=== PATIENT | female | born 1975 | race Caucasian/White ===

== ENCOUNTER 2025-04-28 11:17 | Outpatient (CLI) | payer MEDICAID, SELFPAY ==
--- NOTE | 2025-04-28 10:41 | DI.RAD_ITS ---
Exam(s) XR SACROILIAC JOINTS XR LUMBAR SPINE AP, LAT EXAM: XR LUMBAR SPINE AP, LAT CLINICAL HISTORY: low back pain. TECHNIQUE: 2D digital imaging was performed. Three views of the lumbar spine. Three views of the SI joints. COMPARISON: CR XR SACROILIAC JOINTS from 04/28/2025 FINDINGS: BONES: No fracture or destructive lesion. Vertebral body heights are maintained. Endplate osteophytes at several levels. No facet hypertrophy identified . The SI joints appear normal. DISKS: There is kglh-la-ezchionc narrowing of the L5-S1 disc space. There are small endplate osteophytes. The remaining intervertebral disc spaces are maintained. ALIGNMENT: Lumbar spinal alignment is within normal limits. SOFT TISSUE: Suture material multiple surgical clips in the left upper quadrant. IMPRESSION: Mild degenerative changes of the lumbar spine. The SI joints appear normal. DATA REPOSITORY: RADIATION DOSE DELIVERED:
--- NOTE | 2025-04-28 10:41 | DI.RAD_ITS ---
Exam(s) XR SACROILIAC JOINTS XR LUMBAR SPINE AP, LAT EXAM: XR LUMBAR SPINE AP, LAT CLINICAL HISTORY: low back pain. TECHNIQUE: 2D digital imaging was performed. Three views of the lumbar spine. Three views of the SI joints. COMPARISON: CR XR SACROILIAC JOINTS from 04/28/2025 FINDINGS: BONES: No fracture or destructive lesion. Vertebral body heights are maintained. Endplate osteophytes at several levels. No facet hypertrophy identified . The SI joints appear normal. DISKS: There is xatq-md-ogbkhzib narrowing of the L5-S1 disc space. There are small endplate osteophytes. The remaining intervertebral disc spaces are maintained. ALIGNMENT: Lumbar spinal alignment is within normal limits. SOFT TISSUE: Suture material multiple surgical clips in the left upper quadrant. IMPRESSION: Mild degenerative changes of the lumbar spine. The SI joints appear normal. DATA REPOSITORY: RADIATION DOSE DELIVERED:
== END 2025-04-28 11:18 | disposition home or self-care (01) ==
LOC: DIORS 11:17
PROVIDERS: PCP Nurse Practitioner Family; Visit Provider Physician Assistant
DX: M54.50 Low back pain, unspecified (principal)
CPT/HCPCS: 72100; 72202

== ENCOUNTER 2025-05-14 01:52 | Outpatient (CLI) | payer MEDICAID, SELFPAY ==
--- NOTE | 2025-05-14 08:30 | DI.MRI_ITS ---
Exam(s) MR LUMBAR SPINE WO EXAM: MR LUMBAR SPINE WO CLINICAL HISTORY: PAIN, LUMBAR SPONDYLOSIS WO MYELOPATHY,RADICULOPATHY [facility], [phone]. TECHNIQUE: Multiplanar multisequence MRI of the Lumbar spine was performed. COMPARISON: CR XR SACROILIAC JOINTS from 04/28/2025 CR XR LUMBAR SPINE AP, LAT from 04/28/2025 FINDINGS: Bones: The last intervertebral disc space is designated the L5/S1 level for the numbering purpose of this examination. The vertebral body heights are well maintained. Alignment: Unremarkable. The marrow signal characteristics are unremarkable. Cord: The conus tip ends at the T12 level. It is of normal size and signal intensity. T12-L1: Normal disc height. No focal disc herniation is present. No central spinal canal stenosis.No neural foraminal stenosis. L1-2:Normal disc height. No focal disc herniation is present. No central spinal canal stenosis.No neural foraminal stenosis. L2-3:Normal disc height. No focal disc herniation is present. No central spinal canal stenosis.No neural foraminal stenosis. L3-4: Normal disc height.No focal disc herniation is present. No central spinal canal stenosis.No neural foraminal stenosis. L4-5:Normal disc height. No focal disc herniation is present. Mild facet degenerative changes greater on the left. No central spinal canal stenosis.No neural foraminal stenosis. L5-S1: Mild loss of disc height and disc desiccation. Small endplate osteophytes. Mild posterior disc bulging. No focal disc herniation is present. No central spinal canal stenosis.No neural foraminal stenosis. The visualized SI joints and sacrum are unremarkable. Soft tissues: The paraspinal soft tissues are unremarkable. IMPRESSION: Mild loss of disc height and small endplate osteophytes and mild disc bulging at L5-S1. No evidence of significant spinal stenosis or neuroforaminal narrowing. No evidence of disc herniation at any level. DATA REPOSITORY:
== END 2025-05-14 02:12 ==
LOC: DI 01:52
PROVIDERS: PCP Nurse Practitioner Family; Visit Provider Student in an Organized Health Care Education/Training Program
DX: M47.816 Spondylosis without myelopathy or radiculopathy, lumbar region (principal)
CPT/HCPCS: 72148

== ENCOUNTER 2025-07-31 11:46 | Outpatient (CLI) | payer MEDICAID, SELFPAY ==
--- NOTE | 2025-07-31 06:00 | DI.RAD_ITS ---
Exam(s) XR PAIN CLINIC SACRIOILIAC 2V EXAM: XR PAIN CLINIC SACRIOILIAC 2V CLINICAL HISTORY: DX: Sacroiliac Dysfunction TECHNIQUE: 2D and realtime digital imaging was performed. Radiologist not present. CONTRAST MATERIAL: None. COMPARISON: No exams were available for comparison FINDINGS: Fluoroscopy was provided for pain management therapy. Right sacroiliac joint injection. Please refer to procedure report or details. Radiation Exposure Index: Ka,r=5.94 mGy IMPRESSION: As above. RADIATION DOSE DELIVERED:
[2025-07-31 11:55] VITALS: BP 131/79; PULSE 78; RESP 18; TEMP 36.5; O2SAT 99
[2025-07-31 12:24] VITALS: PULSE 60; RESP 20; O2SAT 100
[2025-07-31 12:25] VITALS: BP 127/71; PULSE 57; PULSE 60; RESP 16; O2SAT 100
[2025-07-31 12:30] VITALS: PULSE 63; RESP 21; O2SAT 100
[2025-07-31 12:31] VITALS: BP 119/82; PULSE 60; PULSE 63; RESP 16; O2SAT 100
[2025-07-31] MEDS: Omnipaque 240 MG/ML 50 ML BTL IJ (12:38)
[2025-07-31] MEDS: methylPREDNISolone ACETATE 40 MG/ML VIAL IJ (12:38)
[2025-07-31] MEDS: Nerve Block Tray 1 EACH MC (12:39)
--- NOTE | 2025-08-03 20:11 | PDOC.PAIN ---
Date of service: 07/31/25 Time of Service: 14:00 Pain Managment Procedure Note Procedure Note Procedure Note: PROCEDURE NOTE RIGHT INTRA-ARTICULAR SACROILIAC JOINT INJECTION Date of Service: July 31, 2025 Patient: Lacey Matson Provider: Zane Rooney DO, MPH COMMENTS: I previously evaluated the patient in the office and their symptoms in relation to the sacroiliac joint pain have remained the same. Pre-operative diagnosis: Sacroiliac joint dysfunction ICD-10 M53.3 Post-operative diagnosis: Same Pre-procedure pain: VAS= 7/10 Lacey Matson has been referred to our [facility] for a Right intra-articular Sacroiliac joint injection. Lacey was interviewed and the medical record reviewed. There were no medical, pharmacologic, radiographic or other structural contraindications to attempting a fluoroscopically-guided, contrast-enhanced, intra-articular Sacroiliac joint injection. The risks, benefits, and potential side effects of this procedure were reviewed with the patient. Questions and concerns were addressed. After it was clear that Lacey was fully informed about the procedure, the printed consent form was signed by the patient and myself. Lacey was placed in the prone position on the fluoroscopy table and an automated blood pressure cuff, 3 lead EKG, and pulse oximeter were applied. The skin entry point for approaching the Right sacroiliac joint was identified under the most advantageous fluoroscopic view and marked. Following thorough Chlorhexadine preparation of the skin and draping with sterile surgical drapes, 2 mls of 1% lidocaine was infiltrated into the skin at the entry point and the surrounding subcutaneous tissues. Next, a 3.5 22G spinal needle was placed under fluoroscopic guidance into the Right sacroiliac joint. Intra-articular placement was confirmed by a clear arthrogram resulting from the injection of 0.25ml of Omnipaque-240. Next, 1 ml of Depo- Medrol 80 mg/ml was injected intra-articularly with an initial reproduction of a significant component of the usual pain. This was followed with 1 ml of 1% Lidocaine. The needle was then removed without difficulty. (49 ml of Omnipaque-240 was wasted). Lacey's vital signs were stable throughout the procedure and were as recorded in nursing records. Follow up plans and appointments were discussed with Lacey. Post procedure instructions were given as documented in nursing records. Having met discharge criteria, Lacey was [facility] from the [facility]. COMMENTS: Post-procedure pain: VAS= 0/10. If the patient receives at least 50% improvement in pain and/or function for at least 3 months, this procedure can be repeated if needed. I personally performed this entire procedure. ZANE ROONEY DO, MPH ABPMR-subspecialty board certification in Pain Medicine [facility] Coding Conscious Sedation used for procedure: No CPT Codes: SI Joint Inj; incl Fluoro - 09035 ([id number] ~G) Additional Codes: Date of Service (30872) Date of service: 07/31/25 Diagnoses: Sacroiliac joint dysfunction
== END 2025-07-31 11:47 | disposition home or self-care (01) ==
LOC: PC 11:47
PROVIDERS: PCP Nurse Practitioner Family; Visit Provider Preventive Medicine Occupational Medicine
DX: M54.50 Low back pain, unspecified (principal); M53.3 Sacrococcygeal disorders, not elsewhere classified
CPT/HCPCS: 27096; 72200; J1010; Q9967